=== PATIENT | male | born 1945 | race Caucasian/White ===

== ENCOUNTER → 2016-05-13 | Outpatient (CLI) | payer MEDICARE, BC | LOC: CT 10:50 | DX: I71.4 Abdominal aortic aneurysm, without rupture (principal); R07.9 Chest pain, unspecified; I82.220 Acute embolism and thrombosis of inferior vena cava; I82.210 Acute embolism and thrombosis of superior vena cava | CPT/HCPCS: 36415; 82565; 84520; J7050; Q9963 ==

== ENCOUNTER → 2021-03-25 | Outpatient (CLI) | payer MEDICARE, BC ==
[~2021-03-25] MED LIST: BACITRACIN3.5 GM OP; CLEOCIN HCL300 MG PO; CLINDAMYCIN HC300 MG PO; HYDROCODON-ACE1 EAC4 PO; IBUPROFEN600 MG PO; LODINE CAP 300300 MG PO; NORFLEX 100 MG100 MG PO; VIBRAMYCIN100 MG PO
== END ==
LOC: NM 09:53
DX: R06.02 Shortness of breath (principal); E78.5 Hyperlipidemia, unspecified; I10 Essential (primary) hypertension; I48.0 Paroxysmal atrial fibrillation; R94.39 Abnormal result of other cardiovascular function study
CPT/HCPCS: 78452; 93017; A9502; J2785

== ENCOUNTER → 2021-05-15 | Outpatient (CLI) | payer MEDICARE, BC ==
[~2021-05-15] MED LIST changes: +ALLEGRA ALLERG180 MG PO; +ANTIVERT 12.512.5 MG PO; +ASPIRIN CHEWABL81 MG PO; +BACLOFEN20 MG PO; +CHRONULAC20 GM/30 M PO; +CLOTRIMAZOLE-BE30 ML TP; +CURCUMIN1 GM PO; +CYMBALTA60 MG PO; +DEPO-TESTO200 MG/1 M IM; +FLOMAX 0.4 MG0.4 MG PO; +IBUPROFEN800 MG PO; +ISOSORBIDE MONO30 MG PO; +LIPITOR TAB 2020 MG PO; +NEURONTIN600 MG PO; +PRILOSEC OTC20 MG PO; +TIMOPTIC5 M1 EYEBOTH
[2021-05-15 08:07] LABS: HEMOGLOBIN 14.1 gm/dl (14.0-17.5); RED BLOOD COUNT 4.3 M/UL (4.20-5.50); WHITE BLOOD COUNT 6.7 K/UL (4.5-11.0)
[2021-05-15 09:03] LABS: BUN/CREATININE RATIO 14 (0-10)
== END ==
LOC: CATH 06:50
PROVIDERS: Internal Medicine Cardiovascular Disease
DX: I25.118 Atherosclerotic heart disease of native coronary artery with other forms of angina pectoris (principal); I10 Essential (primary) hypertension; R06.02 Shortness of breath; E78.5 Hyperlipidemia, unspecified; Z20.822 Contact with and (suspected) exposure to COVID-19
CPT/HCPCS: 36415; 71045; 80048; 85025; 85610; 93005; 99152; 99153; C1769; C1894; J1644; J2250; J3010; J7040; Q9967

== ENCOUNTER → 2021-06-24 | Outpatient (CLI) | payer MEDICARE, BC | LOC: EXRD 08:16 | DX: Z00.00 Encounter for general adult medical examination without abnormal findings (principal) | CPT/HCPCS: 71046 ==